=== PATIENT | male | born 1975 | race Caucasian/White ===

== ENCOUNTER → 2017-08-19 | Outpatient (REF) | payer MEDICARE, MEDICAID ==
[2017-08-19 18:05] LABS: INR 0.94
== END ==
LOC: M LAB REF 16:31
PROVIDERS: ATTEND Internal Medicine Medical Oncology
DX: C18.9 Malignant neoplasm of colon, unspecified (principal)

== ENCOUNTER → 2017-08-28 | Outpatient (CLI) | payer MEDICARE, MEDICAID ==
[~2017-08-28] MED LIST: LIDOCAINE 2% MDV 20 ML VIAL As Ordered ONE; ceFAZolin 1GM INJ (J0690) As Ordered ONE
--- NOTE | 2017-09-03 15:47 | REPIR ---
DATE OF PROCEDURE: 08/28/2017 ATTENDING PHYSICIAN: Mahsa Piedra MD ASSESSMENT: Migdalia Rankin, Naldo Vasquez. PREPROCEDURE DIAGNOSES: Colon cancer with lung metastases. POSTPROCEDURE DIAGNOSES: Colon cancer with lung metastases. OPERATIVE PROCEDURE: Ultrasound and fluoroscopic guided right internal jugular vein Port-a-Cath placement. INDICATION: The patient is a 41-year-old male with colon cancer and metastatic disease to the lungs who required insertion of a Port-a-Cath for installation of chemotherapy. Risks, benefits and alternative treatment options were discussed with the patient. ANESTHESIA: Local with 20 mL of 2% lidocaine. FLUORO TIME: 0.1 minute. CONTRAST: None. COMPLICATIONS: None. DRAINS: None. SPECIMENS: None. IMPLANTS: Right internal jugular vein Port-a-Cath. PROCEDURE: The patient was taken to the angiography suite, placed supine on the angiography room table and the right neck and chest were then prepped and draped in a standard surgical fashion. The ultrasound was used to evaluate the right internal jugular vein, which was widely patent and easily compressible and free of thrombus. Ultrasound was then used to guide cannulation of the right internal jugular vein with concurrent real-time visualization of entry of the needle into the right internal jugular vein with a hard copy image preserved. The micropuncture wire was advanced through the micropuncture needle which was upsized to a micropuncture sheath. The advance wire was advanced through the micropuncture sheath which was then used to sequentially dilate the right internal jugular vein and place an introducer sheath under fluoroscopic guidance. A pocket was created in the right chest after anesthetizing the overlying skin with 2% lidocaine. The catheter was tunneled from the pocket to the right internal jugular vein entry site and then advanced through the introducer sheath with the catheter placed with the tip in the superior vena cava, right atrial junction. The catheter was connected to the port which was placed in the pocket. The port was then accessed and noted to aspirate and flush easily and then was flushed with heparinized saline. The puncture wound in the right neck was closed using a #3-0 Monocryl suture. The incision in the right chest was closed using interrupted inverted #2-0 Vicryl sutures. Steri-Strips and dressings were then applied. The patient tolerated the procedure well. All instrument, sponge and needle counts were correct at the end of the case. There were no complications. Dr. Piedra was present for and directed the entire case. The patient was transferred to the holding area and subsequently discharged in stable condition. The Port-a-Cath is stable for use for access. RADIOLOGIC SUPERVISION AND INTERPRETATION: The ultrasound was used to evaluate the right internal jugular vein which was easily compressible, free of thrombus and widely patent. Ultrasound was used to guide cannulation of the right internal jugular vein with concurrent real-time visualization performed of entry of the needle into the right internal jugular vein. The right internal jugular vein was then sequentially dilated under fluoroscopic guidance and introducer sheath was positioned and the catheter advanced through the introducer sheath under fluoroscopic guidance. Final fluoroscopic image showed the port and catheter to be in good position and good alignment with no pneumo- or hemothorax noted. The port is stable for use for access.
== END | disposition home or self-care (01) ==
LOC: M IRPRO 06:52
PROVIDERS: ATTEND Internal Medicine Medical Oncology
DX: C18.9 Malignant neoplasm of colon, unspecified (principal); C78.00 Secondary malignant neoplasm of unspecified lung
CPT/HCPCS: 36561; 76937; 77001; C1788; C1894; J0690

== ENCOUNTER → 2017-09-14 | Outpatient (REF) | payer MEDICARE, MEDICAID | LOC: M LAB REF 11:09 | PROVIDERS: ATTEND Internal Medicine Medical Oncology | DX: C18.9 Malignant neoplasm of colon, unspecified (principal) ==

== ENCOUNTER → 2017-10-12 | Outpatient (REF) | payer MEDICARE, MEDICAID ==
[2017-10-12 14:59] LABS: PERCENT SATURATION 7.3 % (19.7-50.0)
== END ==
LOC: M LAB REF 13:18
PROVIDERS: ATTEND Internal Medicine Medical Oncology
DX: C18.9 Malignant neoplasm of colon, unspecified (principal)

== ENCOUNTER → 2017-11-11 | Outpatient (REF) | payer MEDICARE, MEDICAID ==
[2017-11-13 09:22] LABS: CARCINOEMBRYONIC ANTIGEN 4.3 NG/ML (<2.5)
== END ==
LOC: M LAB REF 13:05
DX: C18.9 Malignant neoplasm of colon, unspecified (principal)
CPT/HCPCS: 82378

== ENCOUNTER → 2017-11-17 | Outpatient (CLI) | payer MEDICARE, MEDICAID | LOC: M RAD 11:16 | DX: C18.9 Malignant neoplasm of colon, unspecified (principal) | CPT/HCPCS: 71250 ==

== ENCOUNTER → 2017-12-09 | Outpatient (REF) | payer MEDICARE, MEDICAID ==
[2017-12-11 10:30] LABS: CARCINOEMBRYONIC ANTIGEN 6.3 NG/ML (<2.5)
== END ==
LOC: M LAB REF 13:04
DX: C18.9 Malignant neoplasm of colon, unspecified (principal)
CPT/HCPCS: 82378

== ENCOUNTER → 2017-12-30 | Outpatient (REF) | payer MEDICARE, MEDICAID ==
[2018-01-01 11:58] LABS: CARCINOEMBRYONIC ANTIGEN 6.7 NG/ML (<2.5)
== END ==
LOC: M LAB REF 13:28
DX: C18.9 Malignant neoplasm of colon, unspecified (principal)
CPT/HCPCS: 82378

== ENCOUNTER 2018-02-16 08:55 | Inpatient (IN) | payer MEDICARE, MEDICAID ==
[2018-02-16] MEDS: PANTOPRAZOLE 40MG INJ (PROTONIX) (C9113) IV ×2 (09:00→20:50)
[2018-02-16] MEDS: SODIUM CHLORIDE 0.9% INJ 10 ML SYR IV (09:36)
[2018-02-16 09:41] LABS: HEMOGLOBIN 4.5 g/dl (13.5-17.5)
[2018-02-16 09:51] LABS: INR 0.95; PROTHROMBIN TIME 12.8 SECONDS (12.4-14.5)
[2018-02-16 09:52] LABS: PARTIAL THROMBOPLASTIN TIME 35.6 SECONDS (26.8-37.9)
[2018-02-16] MEDS ORDERED: ACETAMINOPHEN TAB 650MG DOSE (2X325MG) PO (12:00)
[2018-02-16 12:05] LABS: RETIC HEMOGLOBIN EQUIVALENT 22.1 pg (24-36); RETICULOCYTE # 93.8 10^9/L (17-77); RETICULOCYTE % 6.1 % (0.5-1.5)
[2018-02-16 12:29] LABS: IMMEDIATE SPIN CROSSMATCH 1 2
[2018-02-16 13:06] LABS: VITAMIN B12 LEVEL 869 PG/ML (247-911)
[2018-02-16 13:06] LABS: FOLATE 21.8 NG/ML (>5.4)
[2018-02-16] MEDS: METOPROLOL TART 12.5 MG PER 1/2 TAB PO ×2 (13:20→20:52)
[2018-02-16 16:11] LABS: LDH LACTATE DEHYDROGENASE 268 U/L (87-241)
[2018-02-16 16:11] LABS: FERRITIN 16 NG/ML (26-388); IRON (FE) 19 UG/DL (65-175); PERCENT SATURATION 4.1 % (19.7-50.0); TOTAL IRON BINDING CAPACITY 468 UG/DL (250-450)
[2018-02-16 21:45] LABS: IMMEDIATE SPIN CROSSMATCH 1 2
[2018-02-17] MEDS ORDERED: SLF 3 ML SYR IV (01:00)
[2018-02-17 04:45] LABS: BASO % 0.8 % (0.0-1.0); EOS # 0.2 10^3/uL (0.0-0.50); EOS % 3.5 % (0.0-3.0); HEMATOCRIT 22.1 % (42.0-52.0); IMMATURE GRANULOCYTE % 0.4 % (0-3.0); LYMPH % 20.6 % (24.0-44.0); MEAN CORPUSCULAR HEMOGLOBIN 29.2 pg (27.0-33.0); MEAN CORPUSCULAR HGB CONC 31.7 g/dl (32.0-36.5); MEAN CORPUSCULAR VOLUME 92.1 fl (80.0-96.0); MONO # 0.5 10^3/uL (0.0-0.8); MONO % 10.9 % (0.0-5.0); NEUTROPHILS # 3.1 10^3/uL (1.8-7.7); NEUTROPHILS % 63.8 % (36.0-66.0); PLATELET COUNT, AUTOMATED 134 10^3/uL (150-450); RED CELL DISTRIBUTION WIDTH 16.6 % (11.5-14.5); WHITE BLOOD COUNT 4.9 10^3/uL (4.0-10.0)
[2018-02-17 05:05] LABS: ALBUMIN 2.3 GM/DL (3.2-5.2); ALBUMIN/GLOBULIN RATIO 0.53 (1.00-1.93); ALKALINE PHOSPHATASE 164 U/L (45-117); ALT/SGPT 29 U/L (12-78); ANION GAP 7 MEQ/L (8-16); AST/SGOT 40 U/L (7-37); BILIRUBIN,TOTAL 0.4 MG/DL (0.2-1.0); BLOOD UREA NITROGEN 14 MG/DL (7-18); CALCIUM LEVEL 7.7 MG/DL (8.5-10.1); CARBON DIOXIDE LEVEL 27 MEQ/L (21-32); CHLORIDE LEVEL 108 MEQ/L (98-107); CREATININE FOR GFR 1.33 MG/DL (0.70-1.30); GLOMERULAR FILTRATION RATE > 60.0 (>60); GLUCOSE, FASTING 84 MG/DL (70-100); MAGNESIUM LEVEL 1.6 MG/DL (1.8-2.4); POTASSIUM SERUM 3.9 MEQ/L (3.5-5.1); SODIUM LEVEL 142 MEQ/L (136-145); TOTAL PROTEIN 6.6 GM/DL (6.4-8.2)
[2018-02-17] MEDS ORDERED: SODIUM CHLORIDE 0.9% INJ 10 ML SYR IV (05:45)
[2018-02-17] MEDS: SLF 3 ML SYR IV ×3 (06:00→20:02)
[2018-02-17 08:06] LABS: HAPTOGLOBIN 176 mg/dL (34-200)
[2018-02-17 08:06] LABS: TRANSFERRIN 376 mg/dL (200-370)
[2018-02-17] MEDS: METOPROLOL TART 12.5 MG PER 1/2 TAB PO (08:11)
[2018-02-17] MEDS: PANTOPRAZOLE 40MG INJ (PROTONIX) (C9113) IV ×2 (08:11→20:00)
[2018-02-17] MEDS: SODIUM CHLORIDE 0.9% INJ 10 ML SYR IV (08:11)
[2018-02-17 10:00] LABS: IMMEDIATE SPIN CROSSMATCH 1 3
[2018-02-17] MEDS ORDERED: PILL CRUSHER/CUTTER 1 EACH XX (10:00)
[2018-02-17] MEDS ORDERED: IRON SUCROSE 100MG 5ML VIAL (J1756 PER 1MG) IV (10:30)
[2018-02-17] MEDS: MAG SULF 1GM/100ML (MAG RUN) 1 GM in APPROPRIATE DILUENT 1 EA IV (17:09)
[2018-02-17] MEDS: IRON SUCROSE 200 MG in NS 100 ML IV (20:00)
[2018-02-17] MEDS: METOPROLOL TART 25 MG TABLET PO (20:01)
[2018-02-18 05:21] LABS: BASO % 0.5 % (0.0-1.0); EOS # 0.2 10^3/uL (0.0-0.50); EOS % 3.6 % (0.0-3.0); HEMATOCRIT 27.8 % (42.0-52.0); HEMOGLOBIN 8.8 g/dl (13.5-17.5); IMMATURE GRANULOCYTE % 0.4 % (0-3.0); LYMPH # 0.8 10^3/uL (1.5-4.5); LYMPH % 14.2 % (24.0-44.0); MEAN CORPUSCULAR HEMOGLOBIN 28.9 pg (27.0-33.0); MEAN CORPUSCULAR HGB CONC 31.7 g/dl (32.0-36.5); MEAN CORPUSCULAR VOLUME 91.4 fl (80.0-96.0); MONO # 0.6 10^3/uL (0.0-0.8); MONO % 10.7 % (0.0-5.0); NEUTROPHILS # 3.9 10^3/uL (1.8-7.7); NEUTROPHILS % 70.6 % (36.0-66.0); PLATELET COUNT, AUTOMATED 125 10^3/uL (150-450); RED BLOOD COUNT 3.04 10^6/uL (4.30-6.10); RED CELL DISTRIBUTION WIDTH 16.9 % (11.5-14.5); WHITE BLOOD COUNT 5.5 10^3/uL (4.0-10.0)
[2018-02-18 05:44] LABS: ALBUMIN 2.3 GM/DL (3.2-5.2); ALBUMIN/GLOBULIN RATIO 0.55 (1.00-1.93); ALKALINE PHOSPHATASE 165 U/L (45-117); ALT/SGPT 28 U/L (12-78); ANION GAP 7 MEQ/L (8-16); AST/SGOT 40 U/L (7-37); BILIRUBIN,TOTAL 0.2 MG/DL (0.2-1.0); BLOOD UREA NITROGEN 11 MG/DL (7-18); CARBON DIOXIDE LEVEL 25 MEQ/L (21-32); CHLORIDE LEVEL 110 MEQ/L (98-107); CREATININE FOR GFR 1.23 MG/DL (0.70-1.30); GLOMERULAR FILTRATION RATE > 60.0 (>60); GLUCOSE, FASTING 93 MG/DL (70-100); MAGNESIUM LEVEL 1.8 MG/DL (1.8-2.4); SODIUM LEVEL 142 MEQ/L (136-145); TOTAL PROTEIN 6.5 GM/DL (6.4-8.2)
[2018-02-18] MEDS: SLF 3 ML SYR IV ×3 (06:07→21:32)
[2018-02-18] MEDS: FERROUS SULFATE 325MG TAB PO ×2 (08:04→21:00)
[2018-02-18] MEDS: SODIUM CHLORIDE 0.9% INJ 10 ML SYR IV (08:05)
[2018-02-18] MEDS: METOPROLOL TART 25 MG TABLET PO ×2 (08:05→21:31)
[2018-02-18] MEDS: PANTOPRAZOLE 40MG INJ (PROTONIX) (C9113) IV ×2 (08:05→21:32)
[2018-02-18 13:19] LABS: IMMEDIATE SPIN CROSSMATCH 1 2
[2018-02-18 15:33] LABS: APPEARANCE, URINE HAZY (CLEAR); BACTERIA, URINE AUTO NEGATIVE (NEGATIVE); BILIRUBIN, URINE AUTO NEGATIVE (NEGATIVE); BLOOD, URINE BLOOD NEGATIVE (NEGATIVE); COLOR, URINE YELLOW (YELLOW); GLUCOSE, URINE (UA) AUTO NEGATIVE (NEGATIVE); KETONE, URINE AUTO NEGATIVE (NEGATIVE); LEUKOCYTE ESTERASE, URINE AUTO TRACE (NEGATIVE); MUCUS, URINE SMALL (NEGATIVE); NITRITE, URINE AUTO NEGATIVE (NEGATIVE); PROTEIN, URINE AUTO NEGATIVE (NEGATIVE); RBC, URINE AUTO 2 /HPF (0-3); SPECIFIC GRAVITY URINE AUTO 1.015 (1.002-1.035); SQUAMOUS EPITHELIAL CELL UR AU 0 /HPF (0-6); UROBILINOGEN, URINE AUTO 0.2 mg/dL (0.0-2.0); WBC, URINE AUTO 1 /HPF (0-3)
[2018-02-18 17:40] LABS: HEMATOCRIT 31.1 % (42.0-52.0); HEMOGLOBIN 9.8 g/dl (13.5-17.5); MEAN CORPUSCULAR HEMOGLOBIN 28.4 pg (27.0-33.0); MEAN CORPUSCULAR HGB CONC 31.5 g/dl (32.0-36.5); MEAN CORPUSCULAR VOLUME 90.1 fl (80.0-96.0); PLATELET COUNT, AUTOMATED 134 10^3/uL (150-450); RED BLOOD COUNT 3.45 10^6/uL (4.30-6.10); RED CELL DISTRIBUTION WIDTH 17.3 % (11.5-14.5); WHITE BLOOD COUNT 4.5 10^3/uL (4.0-10.0)
[2018-02-19 04:50] LABS: BASO % 0.7 % (0.0-1.0); EOS # 0.3 10^3/uL (0.0-0.50); EOS % 4.3 % (0.0-3.0); HEMATOCRIT 32.7 % (42.0-52.0); HEMOGLOBIN 10.4 g/dl (13.5-17.5); IMMATURE GRANULOCYTE % 0.5 % (0-3.0); LYMPH # 1.1 10^3/uL (1.5-4.5); LYMPH % 18.3 % (24.0-44.0); MEAN CORPUSCULAR HEMOGLOBIN 28.9 pg (27.0-33.0); MEAN CORPUSCULAR HGB CONC 31.8 g/dl (32.0-36.5); MEAN CORPUSCULAR VOLUME 90.8 fl (80.0-96.0); MONO # 0.6 10^3/uL (0.0-0.8); MONO % 10.1 % (0.0-5.0); NEUTROPHILS # 3.9 10^3/uL (1.8-7.7); NEUTROPHILS % 66.1 % (36.0-66.0); PLATELET COUNT, AUTOMATED 122 10^3/uL (150-450); RED CELL DISTRIBUTION WIDTH 17.7 % (11.5-14.5); WHITE BLOOD COUNT 5.9 10^3/uL (4.0-10.0)
[2018-02-19 05:16] LABS: ALBUMIN 2.4 GM/DL (3.2-5.2); ALBUMIN/GLOBULIN RATIO 0.56 (1.00-1.93); ALKALINE PHOSPHATASE 176 U/L (45-117); ALT/SGPT 33 U/L (12-78); ANION GAP 5 MEQ/L (8-16); AST/SGOT 41 U/L (7-37); BILIRUBIN,TOTAL 0.3 MG/DL (0.2-1.0); BLOOD UREA NITROGEN 12 MG/DL (7-18); CALCIUM LEVEL 8.1 MG/DL (8.5-10.1); CARBON DIOXIDE LEVEL 26 MEQ/L (21-32); CHLORIDE LEVEL 110 MEQ/L (98-107); CREATININE FOR GFR 1.25 MG/DL (0.70-1.30); GLOMERULAR FILTRATION RATE > 60.0 (>60); GLUCOSE, FASTING 86 MG/DL (70-100); MAGNESIUM LEVEL 1.7 MG/DL (1.8-2.4); POTASSIUM SERUM 4.2 MEQ/L (3.5-5.1); SODIUM LEVEL 141 MEQ/L (136-145); TOTAL PROTEIN 6.7 GM/DL (6.4-8.2)
[2018-02-19] MEDS: SLF 3 ML SYR IV (05:26)
[2018-02-19] MEDS: SODIUM CHLORIDE 0.9% INJ 10 ML SYR IV (10:27)
[2018-02-19] MEDS: PANTOPRAZOLE 40MG INJ (PROTONIX) (C9113) IV (10:27)
[2018-02-19] MEDS: METOPROLOL TART 25 MG TABLET PO (10:28)
[2018-02-19] MEDS: FERROUS SULFATE 325MG TAB PO (10:28)
== END 2018-02-19 12:02 | disposition home health service (06) | DRG 812 ==
LOC: M ED 08:55 → M ED INP 11:49 → M PCU 16:00
PROVIDERS: Internal Medicine
PROC: 30253N1 (ICD-10-PCS; principal; 2018-02-17)
DX: D64.81 Anemia due to antineoplastic chemotherapy (principal); C18.9 Malignant neoplasm of colon, unspecified; C78.7 Secondary malignant neoplasm of liver and intrahepatic bile duct; C78.89 Secondary malignant neoplasm of other digestive organs; D50.9 Iron deficiency anemia, unspecified; I10 Essential (primary) hypertension; Z87.891 Personal history of nicotine dependence; Z79.899 Other long term (current) drug therapy; Z88.6 Allergy status to analgesic agent; Z88.8 Allergy status to other drugs, medicaments and biological substances; Z91.048 Other nonmedicinal substance allergy status; Z93.3 Colostomy status; Z90.49 Acquired absence of other specified parts of digestive tract

== ENCOUNTER → 2018-04-19 | Outpatient (REF) | payer MEDICARE, MEDICAID ==
[2018-04-19 14:22] LABS: FERRITIN 30 NG/ML (26-388); IRON (FE) 284 UG/DL (65-175); PERCENT SATURATION 54.2 % (19.7-50.0); TOTAL IRON BINDING CAPACITY 524 UG/DL (250-450)
== END ==
LOC: M LAB REF 13:13
DX: C18.9 Malignant neoplasm of colon, unspecified (principal); C78.7 Secondary malignant neoplasm of liver and intrahepatic bile duct
CPT/HCPCS: 83550

== ENCOUNTER → 2018-04-20 | Outpatient (CLI) | payer MEDICARE, OTHER, MEDICAID | LOC: M PLARAD 13:00 | DX: C18.9 Malignant neoplasm of colon, unspecified (principal) | CPT/HCPCS: 78815 ==

== ENCOUNTER → 2018-10-29 | Outpatient (CLI) | payer MEDICARE, MEDICAID ==
[~2018-10-29] MED LIST changes: +CALC1CAP31 PO; +FERR1TAB8 PO; +LEVO150T7 OR; -LIDOCAINE 2% MDV 20 ML VIAL As Ordered ONE; +METO1TAB87 PO; +PROT1TAB2 PO; +VITA2000 PO; -ceFAZolin 1GM INJ (J0690) As Ordered ONE
--- NOTE | 2018-10-29 17:54 | REP ---
REASON FOR EXAM: History of colon carcinoma. COMPARISON: Chest CT 11/17/2017 which is the only prior for comparison. The lack of intravenous contrast decreases the sensitivity of the exam. There is mediastinal adenopathy with borderline mediastinal and suspected borderline hilar lymph nodes. These findings are essentially stable. There are no pleural or pericardial effusions. The imaged upper abdomen shows a partially calcified lesion in the liver which has increased in size with a previous maximal dimension of 4.8 cm and today with a maximal dimension of 6.9 cm. The imaged osseous structures are stable in appearance. Evaluation of the lung wu show no new abnormal nodules, masses or opacities. Scattered asymmetric densities are again seen and consistent with chronic changes status quo. IMPRESSION:1. No evidence of acute intrathoracic disease. Lymph nodes as described above. 2. Enlarging hepatic mass as described above and seen in a limited fashion on this noncontrast enhanced chest CT. Electronically Signed by Elier Miguel DO 11/01/2018 05:31 P
== END ==
LOC: M RAD 14:06
PROVIDERS: ATTEND Surgery
DX: C18.6 Malignant neoplasm of descending colon (principal); C78.7 Secondary malignant neoplasm of liver and intrahepatic bile duct